=== PATIENT | female | born 1990 | race Hispanic/Latino ===

== ENCOUNTER 2017-03-28 19:20 | Emergency (ER) | payer OTHER ==
[2017-03-28 19:30] VITALS: BP 128/79; PULSE 54; RESP 26; TEMP 98.5; O2SAT 97
--- NOTE | 2017-03-28 20:16 | ED PDOC ---
HPI: SOB/CHF/COPD Time Seen by Provider: 03/28/17 19:50 Chief Complaint (Nursing): Shortness Of Breath Chief Complaint (Provider): sob History Per: Patient History/Exam Limitations: no limitations Onset/Duration Of Symptoms: Hrs Current Symptoms Are (Timing): Better Additional History Per: Patient Additional Complaint(s): 27 y/o female presents for eval of shortness of breath x 3 hours. Patient states she had just eaten dinner (chicken fried rice, which she has had before) and suddenly had difficulty breathing and felt that her throat was closing. Associated chest tightness. Patient states she took a Benadryl and called 911. Patient notes breathing to have improved, but still notes difficulty getting a deep breath in. Patient just took flight back from [facility] 3 days ago. +OCP use. Denies headache, dizziness, chest pain, palpitations, abdominal pain, leg pain/swelling, known history of food or other allergies. Past Medical History Reviewed: Historical Data, Nursing Documentation, Vital Signs Vital Signs: Last Vital Signs Temp 98.5 F 03/28/17 19:27 Pulse 54 L 03/28/17 19:27 Resp 26 H 03/28/17 19:27 BP 128/79 03/28/17 19:27 Pulse Ox 97 03/28/17 21:47 - Medical History PMH: No Chronic Diseases - Surgical History Surgical History: No Surg Hx - Family History Family History: States: Unknown Family Hx - Living Arrangements Living Arrangements: With Family - Home Medications Home Medications: Ambulatory Orders Medication Instructions Recorded Prednisone 50 mg PO DAILY #4 tablet 03/28/17 - Allergies Allergies/Adverse Reactions: Allergies Allergy/AdvReac Type Severity Reaction Status Date / Time No Known Allergies Allergy Verified 03/28/17 19:26 Review of Systems ROS Statement: Except As Marked, All Systems Reviewed And Found Negative Respiratory: Positive for: Shortness of Breath Physical Exam - Reviewed Nursing Documentation Reviewed: Yes Vital Signs Reviewed: Yes - Physical Exam Appears: Positive for: Well, Non-toxic, No Acute Distress Head Exam: Positive for: ATRAUMATIC, NORMAL INSPECTION, NORMOCEPHALIC Skin: Positive for: Normal Color Eye Exam: Positive for: Normal appearance ENT: Positive for: Normal ENT Inspection Cardiovascular/Chest: Positive for: Regular Rate, Rhythm Respiratory: Positive for: Normal Breath Sounds Gastrointestinal/Abdominal: Positive for: Normal Exam Back: Positive for: Normal Inspection Extremity: Positive for: Normal ROM Neurologic/Psych: Positive for: Alert, Oriented - Laboratory Results Result Diagrams: 03/28/17 20:20 03/28/17 20:20 - ECG ECG: Positive for: Viewed By Me (reviewed by ED attending) ECG Rhythm: Positive for: Sinus Rhythm (100bpm) O2 Sat by Pulse Oximetry: 97 Pulse Ox Interpretation: Normal - Radiology X-Ray: Viewed By Me X-Ray Interpretation: No Acute Disease - Progress ED Course And Treament: labs, ekg, chest xray On re-eval, patient resting comfortably; states no symptoms currently. Patient educated on findings, possible allergy vs anxiety. Rx given for prednisone, advised to continue Benadryl PRN. Advised follow uP PMD 2-3 days. Return to ED for worsening/concerning symptoms. Disposition - Clinical Impression Clinical Impression: Dyspnea - Patient ED Disposition Is Patient to be Admitted: No Counseled Patient/Family Regarding: Studies Performed, Diagnosis, Need For Followup - Disposition Referrals: [facility] [Outside] Disposition: Routine/Home Disposition Time: 21:52 Condition: IMPROVED Prescriptions: Prednisone 50 mg PO DAILY #4 tablet Instructions: Dyspnea (ED)
[2017-03-28 20:24] LABS: BASO % 0.5 % (0.0-2.0); EOS # 0.1 K/uL (0.0-0.7); EOS % 1.5 % (0.0-4.0); HEMATOCRIT 39.9 % (34.0-47.0); LYMPH # 2.8 K/uL (1.0-4.3); LYMPH % 41.9 % (20.0-40.0); MEAN CELL VOLUME 87.3 fl (81.0-99.0); MEAN CORPUSCULAR HEMOGLOBIN 28.9 pg (27.0-31.0); MEAN CORPUSCULAR HGB CONC 33.1 g/dL (33.0-37.0); MEAN PLATELET VOLUME 8.3 fl (7.2-11.7); MONO # 0.4 K/uL (0.0-0.8); NEUT # 3.4 K/uL (1.8-7.0); NEUT % 50.1 % (50.0-75.0); WHITE BLOOD COUNT 6.8 K/uL (4.8-10.8)
[2017-03-28 20:34] LABS: ALB/GLOB RATIO 1.8 (1.0-2.1); ALKALINE PHOSPHATASE 25 U/L (38-126); ALT/SGPT 28 U/L (9-52); AST/SGOT 25 U/L (14-36); BILIRUBIN,TOTAL 0.2 mg/dl (0.2-1.3); BLOOD UREA NITROGEN 9 mg/dl (7-17); CALCIUM 10.2 mg/dL (8.4-10.2); CARBON DIOXIDE 24 mmol/L (22-30); CHLORIDE 107 mmol/L (98-107); GFR AFRICAN-AMERICAN > 60; GLUCOSE,RANDOM 104 mg/dL (65-105); POTASSIUM 3.5 MMOL/L (3.6-5.0); SODIUM 142 mmol/l (132-148); TOTAL PROTEIN 6.9 G/DL (6.3-8.2)
--- NOTE | 2017-03-29 09:34 | RAD ---
HISTORY: Shortness of breath COMPARISON: No prior. TECHNIQUE: Chest PA and lateral FINDINGS: LUNGS: The lungs are well inflated and clear. PLEURA: No significant pleural effusion identified. No pneumothorax apparent. CARDIOVASCULAR: Normal. OSSEOUS STRUCTURES: No significant abnormalities. VISUALIZED UPPER ABDOMEN: Normal. OTHER FINDINGS: None. IMPRESSION: No active pulmonary disease.
== END 2017-03-28 22:24 | disposition home or self-care (01) ==
LOC: H.ER 19:20
DX: R06.00 Dyspnea, unspecified (principal)